=== PATIENT | female | born 1990 | race Caucasian/White ===

== ENCOUNTER 2018-06-03 04:48 | Inpatient (IN) | payer SELFPAY, OTHER ==
[2018-06-03] MEDS ORDERED: OXYTOCIN 30 UNITS/LR 500 ML IV ×2 (06:00)
[2018-06-03] MEDS ORDERED: IBUPROFEN 600 MG TAB PO (06:00)
[2018-06-03] MEDS ORDERED: MISOPROSTOL 200 MCG TAB PR (06:00)
[2018-06-03] MEDS ORDERED: METHYLERGONOVINE 0.2 MG INJ IM (06:00)
[2018-06-03] MEDS ORDERED: BUTORPHANOL 2 MG INJ IV (06:00)
[2018-06-03] MEDS ORDERED: CARBOPROST 250 MCG INJ IM (06:00)
[2018-06-03] MEDS ORDERED: LIDOCAINE 1% (MPF) 30 ML INJ INJ (06:00)
[2018-06-03] MEDS ORDERED: MAGNESIUM SULFATE 4 GM/100 ML 100 ML (06:12)
[2018-06-03] MEDS ORDERED: MAGNESIUM SULFATE 20 GM/500 ML 500 ML IV (06:12)
[2018-06-03] MEDS: LACTATED RINGER'S 1,000 ML IV (06:23)
[2018-06-03] MEDS: MAGNESIUM SULFATE 4 GM/100 ML 100 ML IV (06:24)
[2018-06-03] MEDS: AMPICILLIN 2 GM/NS (PMX) 100 ML IV (06:25)
[2018-06-03 06:57] LABS: ADD MAN DIFF? NO
[2018-06-03] MEDS: MAGNESIUM SULFATE 20 GM/500 ML 500 ML IV ×2 (06:58→17:59)
[2018-06-03 07:03] LABS: WHITE BLOOD COUNT 5.5 10^3/ul (4.8-10.8)
[2018-06-03 07:03] LABS: ABNORMAL IP MESSAGE 1; BASOPHILS % 0.5 % (0.0-2.0); EOSINOPHILS % 0.7 % (0.0-7.0); HEMATOCRIT 23.6 % (37.0-47.0); LYMPHOCYTES # 1.5 10^3/ul (0.8-2.9); LYMPHOCYTES % 27.3 % (15.0-51.0); MEAN CORPUSCULAR HEMOGLOBIN 19.1 pg (29.0-33.0); MEAN CORPUSCULAR HGB CONC 26.7 g/dl (32.0-37.0); MEAN CORPUSCULAR VOLUME 71.7 fl (82.0-101.0); MONOCYTE # 0.5 10^3/ul (0.3-0.9); NEUTROPHIL # 3.4 10^3/ul (1.6-7.5); NEUTROPHILS % 62.1 % (39.0-77.0); NUCLEATED RED BLOOD CELLS # 0.1 10^3/ul (0.0-0.0); NUCLEATED RED BLOOD CELLS% 1.6 /100WBC (0.0-0.0); PLATELET COUNT 149 10^3/UL (140-415); RED BLOOD COUNT 3.29 10^6/ul (4.20-5.40); RED CELL DISTRIBUTION WIDTH 21.8 % (11.5-14.5)
[2018-06-03 07:05] LABS: POSITIVE DIFF @See below
[2018-06-03 07:07] LABS: HEMOGLOBIN 6.3 g/dl (12.0-16.0)
[2018-06-03 07:19] LABS: ALANINE AMINOTRANSFERASE 16 IU/L (13-69); ALBUMIN 2.7 g/dl (3.3-4.9); ALKALINE PHOSPHATASE 194 IU/L (42-121); ANION GAP 8 (5-13); ASPARTATE AMINO TRANSFERASE 17 IU/L (15-46); BLOOD UREA NITROGEN 11 mg/dl (7-20); CALCIUM 8.2 mg/dl (8.4-10.2); CARBON DIOXIDE 23 mmol/L (21-31); CHLORIDE 107 mmol/L (97-110); CREATININE 0.62 mg/dl (0.44-1.00); Estimated GFR > 60 mL/min (>60); GLUCOSE 89 mg/dl (70-220); POTASSIUM 3.7 mmol/L (3.5-5.1); SODIUM 138 mmol/L (135-144); TOTAL PROTEIN 5.7 g/dl (6.1-8.1); URIC ACID 5.1 mg/dl (3.1-7.9)
[2018-06-03 07:20] LABS: INR 0.86; PROTIME 11.8 Sec (11.9-14.9); PT RATIO 0.9
[2018-06-03 07:21] LABS: PARTIAL THROMBOPLASTIN TIME 30.2 Sec (23.0-35.0)
[2018-06-03 07:49] LABS: HEPATITIS B SURFACE ANTIGEN NEGATIVE (NEGATIVE)
[2018-06-03 07:59] LABS: HIV 1&2 ANTIBODY NEGATIVE (NEGATIVE)
[2018-06-03] MEDS ORDERED: LABETALOL HCL 20MG INJ IV ×2 (08:30)
[2018-06-03 08:54] LABS: BARBITURATES Negative (NEGATIVE); BENZODIAZEPINES Negative (NEGATIVE); CANNABINOIDS Negative (NEGATIVE); COCAINE Negative (NEGATIVE); OPIATES Negative (NEGATIVE)
[2018-06-03 08:55] LABS: AMPHETAMINE/METHAMPHETAMINE Positive (NEGATIVE)
[2018-06-03 09:15] LABS: ADD UMIC YES; UR AMORPHOUS CRYSTAL FEW /HPF (NONE SEEN); UR ASCORBIC ACID NEGATIVE (NEGATIVE); UR BACTERIA FEW /HPF (NONE SEEN); UR BILIRUBIN (Dip) NEGATIVE (NEGATIVE); UR BLOOD (Dip) NEGATIVE (NEGATIVE); UR CLARITY SLIGHTLY CLOUDY (CLEAR); UR COLOR YELLOW (YELLOW); UR GLUCOSE (Dip) NEGATIVE (NEGATIVE); UR KETONES (Dip) NEGATIVE (NEGATIVE); UR LEUKOCYTE ESTERASE (Dip) NEGATIVE Leu/ul (NEGATIVE); UR NITRITE (Dip) POSITIVE (NEGATIVE); UR RBC 2 /HPF (0-5); UR SPECIFIC GRAVITY (Dip) 1.023 (1.003-1.030); UR TOTAL PROTEIN (Dip) 2+ mg/dl (NEGATIVE); UR UROBILINOGEN (Dip) NEGATIVE (NEGATIVE); UR WBC 6 /HPF (0-5)
[2018-06-03] MEDS: AMPICILLIN 1 GM/NS (PMX) 50 ML IV ×4 (10:00→22:07)
[2018-06-03] MEDS: LABETALOL HCL 20MG INJ IV (11:06)
[2018-06-03] MEDS: BETAMET NA PHOS/AC(6 MG/ML) 2 ML INJ SYG IM (11:14)
[2018-06-03 12:47] LABS: MAGNESIUM 4.9 mg/dl (1.7-2.5)
[2018-06-03 14:27] LABS: ADD MAN DIFF? NO
[2018-06-03 14:32] LABS: WHITE BLOOD COUNT 7.7 10^3/ul (4.8-10.8)
[2018-06-03 14:32] LABS: ABNORMAL IP MESSAGE 1; BASOPHILS % 0.3 % (0.0-2.0); EOSINOPHILS % 0.1 % (0.0-7.0); HEMATOCRIT 31.8 % (37.0-47.0); HEMOGLOBIN 9.1 g/dl (12.0-16.0); LYMPHOCYTES # 0.7 10^3/ul (0.8-2.9); LYMPHOCYTES % 9.1 % (15.0-51.0); MEAN CORPUSCULAR HEMOGLOBIN 20.9 pg (29.0-33.0); MEAN CORPUSCULAR HGB CONC 28.6 g/dl (32.0-37.0); MEAN CORPUSCULAR VOLUME 72.9 fl (82.0-101.0); MONOCYTE # 0.1 10^3/ul (0.3-0.9); MONOCYTES % 1.6 % (0.0-11.0); NEUTROPHIL # 6.6 10^3/ul (1.6-7.5); NEUTROPHILS % 85.9 % (39.0-77.0); NUCLEATED RED BLOOD CELLS # 0.1 10^3/ul (0.0-0.0); NUCLEATED RED BLOOD CELLS% 1.3 /100WBC (0.0-0.0); PLATELET COUNT 149 10^3/UL (140-415); RED BLOOD COUNT 4.36 10^6/ul (4.20-5.40); RED CELL DISTRIBUTION WIDTH 21.4 % (11.5-14.5)
[2018-06-03 14:35] LABS: POSITIVE DIFF @See below
[2018-06-03 14:49] LABS: LIPASE 97 U/L (23-300)
[2018-06-03 14:49] LABS: AMYLASE 99 U/L (11-123); HEMOGLOBIN A1C 5.3 % (0-5.9)
[2018-06-03 15:11] LABS: TROPONIN-I < 0.012 ng/ml (0.000-0.120)
[2018-06-03 18:54] LABS: MAGNESIUM 4.6 mg/dl (1.7-2.5)
[2018-06-03 21:08] LABS: RAPID PLASMA REAGIN NONREACTIVE (NR)
[2018-06-04] MEDS: LACTATED RINGER'S 1,000 ML IV ×4 (00:05→14:00)
[2018-06-04 01:28] LABS: MAGNESIUM 4.5 mg/dl (1.7-2.5)
[2018-06-04] MEDS: AMPICILLIN 1 GM/NS (PMX) 50 ML IV ×6 (02:07→22:09)
[2018-06-04 07:13] LABS: MAGNESIUM 4.5 mg/dl (1.7-2.5)
[2018-06-04] MEDS: BETAMET NA PHOS/AC(6 MG/ML) 2 ML INJ SYG IM (11:39)
[2018-06-04 12:44] LABS: MAGNESIUM 4.5 mg/dl (1.7-2.5)
[2018-06-04] MEDS: MAGNESIUM SULFATE 20 GM/500 ML 500 ML IV (13:32)
[2018-06-04] MEDS: SUCRALFATE (100 MG/ML) 10ML CUP PO ×3 (14:14→21:00)
[2018-06-04] MEDS: ACETAMINOPHEN 325 MG TAB PO (16:26)
[2018-06-04 17:22] LABS: ADD UMIC YES; UR ASCORBIC ACID NEGATIVE (NEGATIVE); UR BILIRUBIN (Dip) NEGATIVE (NEGATIVE); UR BLOOD (Dip) 1+ mg/dL (NEGATIVE); UR CLARITY CLEAR (CLEAR); UR COLOR STRAW (YELLOW); UR GLUCOSE (Dip) NEGATIVE (NEGATIVE); UR KETONES (Dip) NEGATIVE (NEGATIVE); UR LEUKOCYTE ESTERASE (Dip) NEGATIVE Leu/ul (NEGATIVE); UR NITRITE (Dip) NEGATIVE (NEGATIVE); UR RBC 7 /HPF (0-5); UR SPECIFIC GRAVITY (Dip) 1.008 (1.003-1.030); UR TOTAL PROTEIN (Dip) 2+ mg/dl (NEGATIVE); UR UROBILINOGEN (Dip) NEGATIVE (NEGATIVE); UR WBC 1 /HPF (0-5)
[2018-06-04 18:09] LABS: ADD MAN DIFF? NO
[2018-06-04 18:10] LABS: ABNORMAL IP MESSAGE 1; BASOPHILS % 0.1 % (0.0-2.0); HEMATOCRIT 29.3 % (37.0-47.0); HEMOGLOBIN 8.4 g/dl (12.0-16.0); LYMPHOCYTES # 0.7 10^3/ul (0.8-2.9); LYMPHOCYTES % 8.3 % (15.0-51.0); MEAN CORPUSCULAR HEMOGLOBIN 20.7 pg (29.0-33.0); MEAN CORPUSCULAR HGB CONC 28.7 g/dl (32.0-37.0); MEAN CORPUSCULAR VOLUME 72.2 fl (82.0-101.0); MONOCYTE # 0.3 10^3/ul (0.3-0.9); MONOCYTES % 3.8 % (0.0-11.0); NEUTROPHIL # 6.8 10^3/ul (1.6-7.5); NEUTROPHILS % 86.7 % (39.0-77.0); NUCLEATED RED BLOOD CELLS # 0.2 10^3/ul (0.0-0.0); NUCLEATED RED BLOOD CELLS% 1.9 /100WBC (0.0-0.0); PLATELET COUNT 136 10^3/UL (140-415); RED BLOOD COUNT 4.06 10^6/ul (4.20-5.40); RED CELL DISTRIBUTION WIDTH 21.5 % (11.5-14.5)
[2018-06-04 18:10] LABS: WHITE BLOOD COUNT 7.8 10^3/ul (4.8-10.8)
[2018-06-04 18:16] LABS: POSITIVE DIFF @See below
[2018-06-04 18:29] LABS: MAGNESIUM 4.5 mg/dl (1.7-2.5)
[2018-06-04 18:29] LABS: ALANINE AMINOTRANSFERASE 9 IU/L (13-69); ALBUMIN 2.8 g/dl (3.3-4.9); ALBUMIN/GLOBULIN RATIO 0.87; ALKALINE PHOSPHATASE 203 IU/L (42-121); ANION GAP 8 (5-13); ASPARTATE AMINO TRANSFERASE 19 IU/L (15-46); BLOOD UREA NITROGEN 9 mg/dl (7-20); CALCIUM 7.4 mg/dl (8.4-10.2); CARBON DIOXIDE 23 mmol/L (21-31); CHLORIDE 104 mmol/L (97-110); Estimated GFR > 60 mL/min (>60); GLUCOSE 131 mg/dl (70-220); POTASSIUM 4.2 mmol/L (3.5-5.1); SODIUM 135 mmol/L (135-144); URIC ACID 5.1 mg/dl (3.1-7.9)
[2018-06-04 18:30] LABS: INR 0.93; PARTIAL THROMBOPLASTIN TIME 28.3 Sec (23.0-35.0); PROTIME 12.5 Sec (11.9-14.9)
[2018-06-04] MEDS: ONDANSETRON 4 MG INJ IV (21:29)
[2018-06-04] MEDS ORDERED: ACETAMINOPHEN 650 MG SUPP PR (21:30)
[2018-06-04] MEDS: NACL 0.9% 3 ML SYG IV (21:31)
[2018-06-04 21:36] LABS: IMMEDIATE SPIN CROSSMATCH 1 3
[2018-06-05] MEDS: NACL 0.9% 3 ML SYG IV ×3 (00:02→23:54)
[2018-06-05 01:43] LABS: MAGNESIUM 4.5 mg/dl (1.7-2.5)
[2018-06-05] MEDS: AMPICILLIN 1 GM/NS (PMX) 50 ML IV ×6 (02:02→22:26)
[2018-06-05] MEDS: LACTATED RINGER'S 1,000 ML IV ×2 (04:10→18:21)
[2018-06-05 07:18] LABS: MAGNESIUM 3.9 mg/dl (1.7-2.5)
[2018-06-05] MEDS: SUCRALFATE (100 MG/ML) 10ML CUP PO ×4 (09:38→20:44)
[2018-06-05] MEDS: DOCUSATE SODIUM 100 MG CAP PO (09:38)
[2018-06-05] MEDS: PRENATAL VITAMIN PO (09:39)
[2018-06-05] MEDS: FERROUS SULFATE (EC) 325 MG TAB PO ×2 (09:39→22:53)
[2018-06-05] MEDS: MAGNESIUM SULFATE 20 GM/500 ML 500 ML IV (09:42)
[2018-06-05] MEDS: LABETALOL 200 MG TAB PO ×3 (10:24→22:27)
[2018-06-05 12:46] LABS: MAGNESIUM 3.7 mg/dl (1.7-2.5)
[2018-06-05 13:08] LABS: ADD MAN DIFF? NO
[2018-06-05 13:12] LABS: WHITE BLOOD COUNT 10.3 10^3/ul (4.8-10.8)
[2018-06-05 13:12] LABS: ABNORMAL IP MESSAGE 1; BASOPHILS % 0.1 % (0.0-2.0); EOSINOPHILS % 0.1 % (0.0-7.0); HEMATOCRIT 31.3 % (37.0-47.0); HEMOGLOBIN 9.1 g/dl (12.0-16.0); LYMPHOCYTES # 1.3 10^3/ul (0.8-2.9); LYMPHOCYTES % 12.5 % (15.0-51.0); MEAN CORPUSCULAR HEMOGLOBIN 21.5 pg (29.0-33.0); MEAN CORPUSCULAR HGB CONC 29.1 g/dl (32.0-37.0); MONOCYTE # 0.9 10^3/ul (0.3-0.9); MONOCYTES % 8.4 % (0.0-11.0); NEUTROPHILS % 77.9 % (39.0-77.0); NUCLEATED RED BLOOD CELLS # 0.3 10^3/ul (0.0-0.0); NUCLEATED RED BLOOD CELLS% 2.5 /100WBC (0.0-0.0); PLATELET COUNT 138 10^3/UL (140-415); RED BLOOD COUNT 4.23 10^6/ul (4.20-5.40); RED CELL DISTRIBUTION WIDTH 21.4 % (11.5-14.5)
[2018-06-05 13:20] LABS: POSITIVE DIFF @See below
[2018-06-05 13:30] LABS: URIC ACID 4.7 mg/dl (3.1-7.9)
[2018-06-05 13:32] LABS: ALANINE AMINOTRANSFERASE 16 IU/L (13-69); ALBUMIN 2.6 g/dl (3.3-4.9); ALBUMIN/GLOBULIN RATIO 0.89; ALKALINE PHOSPHATASE 188 IU/L (42-121); ANION GAP 8 (5-13); ASPARTATE AMINO TRANSFERASE 18 IU/L (15-46); BILIRUBIN,INDIRECT 0.1 mg/dl (0-1.1); BILIRUBIN,TOTAL 0.1 mg/dl (0.2-1.3); BLOOD UREA NITROGEN 12 mg/dl (7-20); CALCIUM 7.4 mg/dl (8.4-10.2); CARBON DIOXIDE 24 mmol/L (21-31); CHLORIDE 105 mmol/L (97-110); CREATININE 0.53 mg/dl (0.44-1.00); Estimated GFR > 60 mL/min (>60); GLUCOSE 98 mg/dl (70-220); POTASSIUM 4.3 mmol/L (3.5-5.1); SODIUM 137 mmol/L (135-144); TOTAL PROTEIN 5.5 g/dl (6.1-8.1)
[2018-06-05] MEDS: ACETAMINOPHEN 325 MG TAB PO (20:46)
[2018-06-06] MEDS: AMPICILLIN 1 GM/NS (PMX) 50 ML IV ×6 (02:18→21:29)
[2018-06-06] MEDS: LABETALOL 200 MG TAB PO ×2 (06:00→21:40)
[2018-06-06 06:15] LABS: ADD MAN DIFF? NO
[2018-06-06 06:23] LABS: ABNORMAL IP MESSAGE 1; BASOPHILS % 0.3 % (0.0-2.0); HEMOGLOBIN 8.7 g/dl (12.0-16.0); LYMPHOCYTES # 1.5 10^3/ul (0.8-2.9); MEAN CORPUSCULAR HEMOGLOBIN 21.8 pg (29.0-33.0); MEAN CORPUSCULAR VOLUME 75.2 fl (82.0-101.0); MONOCYTE # 0.8 10^3/ul (0.3-0.9); MONOCYTES % 7.9 % (0.0-11.0); NEUTROPHIL # 7.8 10^3/ul (1.6-7.5); NEUTROPHILS % 75.8 % (39.0-77.0); NUCLEATED RED BLOOD CELLS # 0.4 10^3/ul (0.0-0.0); NUCLEATED RED BLOOD CELLS% 3.9 /100WBC (0.0-0.0); PLATELET COUNT 130 10^3/UL (140-415); RED BLOOD COUNT 3.99 10^6/ul (4.20-5.40); RED CELL DISTRIBUTION WIDTH 21.6 % (11.5-14.5)
[2018-06-06 06:23] LABS: WHITE BLOOD COUNT 10.3 10^3/ul (4.8-10.8)
[2018-06-06 06:26] LABS: POSITIVE DIFF @See below
[2018-06-06] MEDS ORDERED: OXYTOCIN 30 UNITS/LR 500 ML BAG IV (07:00)
[2018-06-06] MEDS ORDERED: METHYLERGONOVINE 0.2 MG INJ IM ×2 (08:00→17:30)
[2018-06-06] MEDS ORDERED: OXYTOCIN 30 UNITS/LR 500 ML IV ×3 (08:00→17:30)
[2018-06-06] MEDS: LEVALBUTEROL (NEB) 0.31 MG/3 ML AMP HHN (08:09)
[2018-06-06] MEDS: MAGNESIUM SULFATE 20 GM/500 ML 500 ML IV ×3 (08:21→21:25)
[2018-06-06] MEDS: LACTATED RINGER'S 1,000 ML IV ×3 (08:22→23:29)
[2018-06-06] MEDS: ONDANSETRON 4 MG INJ IV (08:59)
[2018-06-06] MEDS: CITRIC ACID/NA CITRATE 30 ML CUP PO (08:59)
[2018-06-06] MEDS: DOCUSATE SODIUM 100 MG CAP PO (09:00)
[2018-06-06] MEDS: SUCRALFATE (100 MG/ML) 10ML CUP PO ×4 (09:00→21:00)
[2018-06-06] MEDS: FERROUS SULFATE (EC) 325 MG TAB PO ×2 (09:00→21:40)
[2018-06-06] MEDS: PRENATAL VITAMIN PO (09:00)
[2018-06-06] MEDS ORDERED: morphine SULFATE/PF (10 MG/10 ML) INJ (09:21)
[2018-06-06] MEDS ORDERED: OXYTOCIN 10 UNIT INJ (09:21)
[2018-06-06] MEDS ORDERED: PHENYLephrine (100 MCG/ML) 10ML SYG (09:21)
[2018-06-06] MEDS ORDERED: FENTAnyl 50 MCG/ML VIAL (09:45)
[2018-06-06] MEDS ORDERED: METOCLOPRAMIDE 10 MG INJ (09:47)
[2018-06-06] MEDS ORDERED: DEXAMETHASONE 4 MG/ML 1 ML INJ (09:47)
[2018-06-06] MEDS ORDERED: NALOXONE (0.4 MG/ML) INJ IV (10:00)
[2018-06-06] MEDS ORDERED: morphine 2 MG INJ IV ×2 (10:00)
[2018-06-06] MEDS ORDERED: OXYCODONE/ACETAMINOPHEN (5/325) TAB PO (10:00)
[2018-06-06] MEDS ORDERED: ONDANSETRON 4 MG INJ IV ×2 (10:00)
[2018-06-06] MEDS ORDERED: NALBUPHINE HCL (10 MG/1 ML) INJ IV (10:00)
[2018-06-06] MEDS ORDERED: LABETALOL HCL 20MG INJ IV (10:00)
[2018-06-06] MEDS ORDERED: FENTAnyl 50 MCG/ML VIAL IV ×2 (10:00)
[2018-06-06] MEDS ORDERED: DIPHENHYDRAMINE 50 MG INJ IV ×2 (10:00)
[2018-06-06] MEDS ORDERED: METOCLOPRAMIDE 10 MG INJ IV (10:00)
[2018-06-06] MEDS ORDERED: EPHEDrine SULFATE 50 MG/5 ML SYG IV (10:00)
[2018-06-06] MEDS ORDERED: ACETAMINOPHEN 500 MG TAB PO (10:00)
[2018-06-06] MEDS ORDERED: KETOROLAC 30 MG INJ IV (10:00)
[2018-06-06] MEDS ORDERED: MEPERIDINE 25 MG INJ IV (10:00)
[2018-06-06] MEDS ORDERED: HYDROCODONE/APAP (5/325) TAB PO (10:00)
[2018-06-06] MEDS ORDERED: HYDROmorphONE 1 MG/5 ML IV SYRINGE IV ×2 (10:00)
[2018-06-06] MEDS ORDERED: CA GLUCONATE (GM) 10% 10ML INJ IV (10:30)
[2018-06-06] MEDS ORDERED: MAGNESIUM SULFATE 2 GM/50 ML 50 ML IVPB (10:30)
[2018-06-06 11:57] LABS: HEPATITIS C VIRAL ANTIBODY NEGATIVE (NEGATIVE)
[2018-06-06] MEDS ORDERED: MISOPROSTOL 200 MCG TAB (12:00)
[2018-06-06] MEDS: HYDROmorphONE 0.5 MG/0.5 ML SYG IV ×3 (12:05→17:22)
[2018-06-06] MEDS: MISOPROSTOL 200 MCG TAB PR (12:11)
[2018-06-06] MEDS: CARBOPROST 250 MCG INJ IM (12:12)
[2018-06-06] MEDS: OXYTOCIN 30 UNITS/LR 500 ML IV ×2 (12:21→17:09)
[2018-06-06 12:27] LABS: HEMATOCRIT 25.6 % (37.0-47.0); HEMOGLOBIN 7.4 g/dl (12.0-16.0)
[2018-06-06 12:50] LABS: MAGNESIUM 4.1 mg/dl (1.7-2.5)
[2018-06-06] MEDS: CEFAZOLIN 2 GM/50 ML (PMX) 50 ML IVPB (14:17)
[2018-06-06 16:13] LABS: IMMEDIATE SPIN CROSSMATCH 1 4
[2018-06-06] MEDS ORDERED: NACL 0.9% 3 ML SYG IV (17:30)
[2018-06-06] MEDS ORDERED: LANOLIN HPA 1 PKT TOP (17:30)
[2018-06-06] MEDS ORDERED: CARBOPROST 250 MCG INJ IM (17:30)
[2018-06-06] MEDS ORDERED: MISOPROSTOL 200 MCG TAB PR (17:30)
[2018-06-06 19:37] LABS: HEMATOCRIT 27.1 % (37.0-47.0); HEMOGLOBIN 8.1 g/dl (12.0-16.0)
[2018-06-06 19:56] LABS: MAGNESIUM 2.9 mg/dl (1.7-2.5)
[2018-06-06] MEDS: SENNA/DOCUSATE NA (8.6MG/50MG) TAB PO (21:40)
[2018-06-07 00:29] LABS: HEMOGLOBIN 7.1 g/dl (12.0-16.0)
[2018-06-07 00:46] LABS: MAGNESIUM 4.3 mg/dl (1.7-2.5)
[2018-06-07] MEDS: AMPICILLIN 1 GM/NS (PMX) 50 ML IV ×3 (02:00→09:31)
[2018-06-07] MEDS: MAGNESIUM SULFATE 20 GM/500 ML 500 ML IV (04:05)
[2018-06-07 06:19] LABS: ADD MAN DIFF? NO
[2018-06-07 06:22] LABS: ABNORMAL IP MESSAGE 1; BASOPHILS % 0.1 % (0.0-2.0); EOSINOPHILS % 0.1 % (0.0-7.0); HEMATOCRIT 23.1 % (37.0-47.0); LYMPHOCYTES # 1.6 10^3/ul (0.8-2.9); LYMPHOCYTES % 10.7 % (15.0-51.0); MEAN CORPUSCULAR HEMOGLOBIN 23.4 pg (29.0-33.0); MEAN CORPUSCULAR HGB CONC 30.3 g/dl (32.0-37.0); MEAN CORPUSCULAR VOLUME 77.3 fl (82.0-101.0); MONOCYTES % 6.3 % (0.0-11.0); NEUTROPHIL # 12.3 10^3/ul (1.6-7.5); NEUTROPHILS % 82.3 % (39.0-77.0); NUCLEATED RED BLOOD CELLS # 0.1 10^3/ul (0.0-0.0); NUCLEATED RED BLOOD CELLS% 0.7 /100WBC (0.0-0.0); PLATELET COUNT 99 10^3/UL (140-415); RED BLOOD COUNT 2.99 10^6/ul (4.20-5.40); RED CELL DISTRIBUTION WIDTH 21.8 % (11.5-14.5)
[2018-06-07 06:28] LABS: POSITIVE DIFF @See below
[2018-06-07 06:37] LABS: MAGNESIUM 4.8 mg/dl (1.7-2.5)
[2018-06-07 07:36] LABS: RUBELLA ANTIBODY - IGG <0.90 index
[2018-06-07] MEDS: SUCRALFATE (100 MG/ML) 10ML CUP PO ×4 (09:20→21:15)
[2018-06-07] MEDS: SENNA/DOCUSATE NA (8.6MG/50MG) TAB PO ×2 (09:21→21:17)
[2018-06-07] MEDS: DOCUSATE SODIUM 100 MG CAP PO (09:21)
[2018-06-07] MEDS: FERROUS SULFATE (EC) 325 MG TAB PO ×2 (09:21→21:17)
[2018-06-07] MEDS: LABETALOL 200 MG TAB PO ×2 (09:22→21:16)
[2018-06-07] MEDS: PRENATAL VITAMIN PO (09:23)
[2018-06-07] MEDS: INFLUENZA VIRUS VACCINE 0.5 ML (DISPENSING) IM* (10:00)
[2018-06-07] MEDS: OXYCODONE/ACETAMINOPHEN (5/325) TAB PO ×3 (11:58→20:42)
[2018-06-07] MEDS: MEDROXYPROGESTERONE 150 MG INJ SYG IM (14:02)
[2018-06-07] MEDS: ACETAMINOPHEN 325 MG TAB PO (15:08)
[2018-06-07] MEDS: IBUPROFEN 600 MG TAB PO ×2 (17:46→23:55)
[2018-06-08] MEDS ORDERED: LABETALOL 200 MG TAB PO (05:00)
[2018-06-08] MEDS: IBUPROFEN 600 MG TAB PO ×4 (05:31→23:36)
[2018-06-08 07:43] LABS: ADD MAN DIFF? NO
[2018-06-08 08:03] LABS: WHITE BLOOD COUNT 11.8 10^3/ul (4.8-10.8)
[2018-06-08 08:03] LABS: ABNORMAL IP MESSAGE 1; BASOPHILS % 0.1 % (0.0-2.0); EOSINOPHILS % 0.3 % (0.0-7.0); HEMATOCRIT 21.2 % (37.0-47.0); LYMPHOCYTES # 1.5 10^3/ul (0.8-2.9); MEAN CORPUSCULAR HEMOGLOBIN 23.5 pg (29.0-33.0); MEAN CORPUSCULAR HGB CONC 29.7 g/dl (32.0-37.0); MEAN CORPUSCULAR VOLUME 79.1 fl (82.0-101.0); MONOCYTE # 0.7 10^3/ul (0.3-0.9); NEUTROPHIL # 9.4 10^3/ul (1.6-7.5); NEUTROPHILS % 80.1 % (39.0-77.0); NUCLEATED RED BLOOD CELLS # 0.1 10^3/ul (0.0-0.0); NUCLEATED RED BLOOD CELLS% 0.5 /100WBC (0.0-0.0); PLATELET COUNT 102 10^3/UL (140-415); RED BLOOD COUNT 2.68 10^6/ul (4.20-5.40); RED CELL DISTRIBUTION WIDTH 22.6 % (11.5-14.5)
[2018-06-08 08:05] LABS: POSITIVE DIFF @See below
[2018-06-08 08:09] LABS: HEMOGLOBIN 6.3 g/dl (12.0-16.0)
[2018-06-08] MEDS: OXYCODONE/ACETAMINOPHEN (5/325) TAB PO ×2 (08:18→16:51)
[2018-06-08] MEDS: LABETALOL 200 MG TAB PO ×2 (08:18→20:24)
[2018-06-08] MEDS: DOCUSATE SODIUM 100 MG CAP PO (08:18)
[2018-06-08] MEDS: SUCRALFATE (100 MG/ML) 10ML CUP PO ×4 (08:19→21:00)
[2018-06-08] MEDS: SENNA/DOCUSATE NA (8.6MG/50MG) TAB PO (08:19)
[2018-06-08] MEDS: PRENATAL VITAMIN PO (08:19)
[2018-06-08] MEDS: FERROUS SULFATE (EC) 325 MG TAB PO ×2 (08:19→20:24)
[2018-06-08 09:53] LABS: ANISOCYTOSIS 2+ (0-0); HYPOCHROMASIA 2+ (0-0); LYMPHOCYTES % (M) 9 % (15-51); MICROCYTOSIS 2+ (0-0); MONOCYTE #M 0.4 10^3/ul (0.3-0.9); MONOCYTES % (M) 4 % (0-11); PLATELET ESTIMATE DECREASED; POLYCHROMASIA 1+ (0-0); SEGMENTED NEUTROPHILS (M) % 87 % (39-77); SMUDGE%M 1 % (0-0)
[2018-06-08 15:06] LABS: IMMEDIATE SPIN CROSSMATCH 1
[2018-06-08] MEDS: NIFEdipine (XL) 30 MG TAB PO (16:30)
[2018-06-08] MEDS: LEVALBUTEROL (NEB) 0.31 MG/3 ML AMP HHN (17:53)
[2018-06-08] MEDS ORDERED: FUROSEMIDE 20 MG INJ IV (18:00)
[2018-06-09] MEDS: FUROSEMIDE 40 MG TAB PO (00:14)
[2018-06-09] MEDS: SENNA/DOCUSATE NA (8.6MG/50MG) TAB PO ×3 (00:52→20:57)
[2018-06-09] MEDS: OXYCODONE/ACETAMINOPHEN (5/325) TAB PO (04:03)
[2018-06-09] MEDS: IBUPROFEN 600 MG TAB PO ×3 (05:26→18:13)
[2018-06-09 07:07] LABS: ADD MAN DIFF? NO
[2018-06-09 07:08] LABS: ABNORMAL IP MESSAGE 1; BASOPHILS % 0.2 % (0.0-2.0); EOSINOPHILS # 0.1 10^3/ul (0.0-0.5); EOSINOPHILS % 0.6 % (0.0-7.0); HEMOGLOBIN 8.7 g/dl (12.0-16.0); LYMPHOCYTES # 1.7 10^3/ul (0.8-2.9); LYMPHOCYTES % 15.1 % (15.0-51.0); MEAN CORPUSCULAR HEMOGLOBIN 25.1 pg (29.0-33.0); MEAN CORPUSCULAR VOLUME 83.8 fl (82.0-101.0); MONOCYTE # 0.6 10^3/ul (0.3-0.9); NEUTROPHIL # 8.7 10^3/ul (1.6-7.5); NEUTROPHILS % 78.6 % (39.0-77.0); NUCLEATED RED BLOOD CELLS # 0.1 10^3/ul (0.0-0.0); NUCLEATED RED BLOOD CELLS% 0.5 /100WBC (0.0-0.0); PLATELET COUNT 111 10^3/UL (140-415); RED BLOOD COUNT 3.46 10^6/ul (4.20-5.40); RED CELL DISTRIBUTION WIDTH 21.6 % (11.5-14.5)
[2018-06-09 07:08] LABS: WHITE BLOOD COUNT 11.1 10^3/ul (4.8-10.8)
[2018-06-09 07:15] LABS: POSITIVE DIFF @See below
[2018-06-09] MEDS: LABETALOL 200 MG TAB PO ×2 (09:06→20:58)
[2018-06-09] MEDS: DOCUSATE SODIUM 100 MG CAP PO (09:07)
[2018-06-09] MEDS: FERROUS SULFATE (EC) 325 MG TAB PO ×2 (09:07→20:58)
[2018-06-09] MEDS: PRENATAL VITAMIN PO (09:07)
[2018-06-09] MEDS: SUCRALFATE (100 MG/ML) 10ML CUP PO ×4 (09:07→20:57)
[2018-06-09] MEDS: NIFEdipine (XL) 30 MG TAB PO (09:07)
[2018-06-09] MEDS: DIPHTH/TET/ACEL PERTUSS (ADULT) 0.5 ML VIAL IM* (11:09)
[2018-06-09 11:11] LABS: RUBELLA ANTIBODY - IGM <20.00 AU/mL
[2018-06-09 19:22] LABS: AMPHETAMINE/METHAMPHETAMINE Negative (NEGATIVE); BARBITURATES Negative (NEGATIVE); BENZODIAZEPINES Negative (NEGATIVE); CANNABINOIDS Negative (NEGATIVE); COCAINE Negative (NEGATIVE); OPIATES Negative (NEGATIVE)
[2018-06-10] MEDS: IBUPROFEN 600 MG TAB PO ×3 (00:07→12:05)
[2018-06-10] MEDS: DOCUSATE SODIUM 100 MG CAP PO (09:44)
[2018-06-10] MEDS: ACETAMINOPHEN 325 MG TAB PO (09:44)
[2018-06-10] MEDS: SENNA/DOCUSATE NA (8.6MG/50MG) TAB PO (09:44)
[2018-06-10] MEDS: NIFEdipine (XL) 30 MG TAB PO (09:44)
[2018-06-10] MEDS: FERROUS SULFATE (EC) 325 MG TAB PO (09:45)
[2018-06-10] MEDS: LABETALOL 200 MG TAB PO (09:45)
[2018-06-10] MEDS: SUCRALFATE (100 MG/ML) 10ML CUP PO ×2 (09:46→13:00)
[2018-06-10] MEDS: PRENATAL VITAMIN PO (12:06)
[2018-06-10 14:19] LABS: ADD MAN DIFF? NO
[2018-06-10 14:24] LABS: WHITE BLOOD COUNT 9.5 10^3/ul (4.8-10.8)
[2018-06-10 14:24] LABS: ABNORMAL IP MESSAGE 1; BASOPHILS % 0.1 % (0.0-2.0); EOSINOPHILS # 0.1 10^3/ul (0.0-0.5); EOSINOPHILS % 0.8 % (0.0-7.0); HEMATOCRIT 30.7 % (37.0-47.0); HEMOGLOBIN 9.4 g/dl (12.0-16.0); LYMPHOCYTES # 1.2 10^3/ul (0.8-2.9); LYMPHOCYTES % 12.7 % (15.0-51.0); MEAN CORPUSCULAR HEMOGLOBIN 25.1 pg (29.0-33.0); MEAN CORPUSCULAR HGB CONC 30.6 g/dl (32.0-37.0); MEAN CORPUSCULAR VOLUME 81.9 fl (82.0-101.0); MEAN PLATELET VOLUME 10.1 fl (7.4-10.4); MONOCYTE # 0.6 10^3/ul (0.3-0.9); MONOCYTES % 6.6 % (0.0-11.0); NEUTROPHIL # 7.5 10^3/ul (1.6-7.5); NEUTROPHILS % 79.3 % (39.0-77.0); NUCLEATED RED BLOOD CELLS% 0.2 /100WBC (0.0-0.0); PLATELET COUNT 126 10^3/UL (140-415); POSITIVE DIFF @See below; RED BLOOD COUNT 3.75 10^6/ul (4.20-5.40); RED CELL DISTRIBUTION WIDTH 22.5 % (11.5-14.5)
== END 2018-06-10 17:25 | disposition home or self-care (01) | DRG 787 ==
LOC: OBT 04:48 → L-D 06-06 09:17 → ICU 06-06 10:14 → OBT 06:05 → L-D 06:05 → PP1 06-06 20:00 → L-D 08:00
PROC: 30233N1 Transfusion of Nonautologous Red Blood Cells into Peripheral Vein, Percutaneous Approach (ICD-10-PCS; 2018-06-03)
PROC: 10D00Z1 Extraction of Products of Conception, Low, Open Approach (ICD-10-PCS; principal; 2018-06-06)
DX: O14.14 Severe pre-eclampsia complicating childbirth (principal); K92.0 Hematemesis; O72.1 Other immediate postpartum hemorrhage; O99.02 Anemia complicating childbirth; D64.9 Anemia, unspecified; O99.62 Diseases of the digestive system complicating childbirth; O99.324 Drug use complicating childbirth; F15.90 Other stimulant use, unspecified, uncomplicated; O12.05 Gestational edema, complicating the puerperium; O99.89 Other specified diseases and conditions complicating pregnancy, childbirth and the puerperium; R07.9 Chest pain, unspecified; Z37.0 Single live birth; Z3A.33 33 weeks gestation of pregnancy
CPT/HCPCS: 36430; 76815; 76818; 78580; 80053; 80307; 81001; 82150; 83036; 83690; 83735; 84484; 84560; 85014; 85018; 85025; 85384; 85610; 85730; 86592; 86703; 86762; 86803; 86850; 86900; 86901; 86920; 87340; 88307; 90715; 93971; 94640; 94664; 99464

== ENCOUNTER 2018-06-25 18:36 | Inpatient (IN) | payer MEDICAID, OTHER ==
[2018-06-25] MEDS: LABETALOL HCL 20MG INJ IV (19:30)
[2018-06-25 19:55] LABS: ADD MAN DIFF? NO
[2018-06-25 19:58] LABS: WHITE BLOOD COUNT 5.5 10^3/ul (4.8-10.8)
[2018-06-25 19:58] LABS: BASOPHILS % 0.7 % (0.0-2.0); EOSINOPHILS # 0.1 10^3/ul (0.0-0.5); HEMATOCRIT 37.5 % (37.0-47.0); HEMOGLOBIN 11.3 g/dl (12.0-16.0); LYMPHOCYTES % 36.2 % (15.0-51.0); MEAN CORPUSCULAR HEMOGLOBIN 25.9 pg (29.0-33.0); MEAN CORPUSCULAR HGB CONC 30.1 g/dl (32.0-37.0); MEAN CORPUSCULAR VOLUME 85.8 fl (82.0-101.0); MONOCYTE # 0.5 10^3/ul (0.3-0.9); MONOCYTES % 8.3 % (0.0-11.0); NEUTROPHIL # 2.9 10^3/ul (1.6-7.5); NEUTROPHILS % 52.6 % (39.0-77.0); PLATELET COUNT 339 10^3/UL (140-415); RED BLOOD COUNT 4.37 10^6/ul (4.20-5.40); RED CELL DISTRIBUTION WIDTH 21.9 % (11.5-14.5)
[2018-06-25] MEDS ORDERED: ONDANSETRON 4 MG INJ IV (20:00)
[2018-06-25] MEDS: ONDANSETRON 4 MG INJ IV (20:11)
[2018-06-25] MEDS: morphine 4 MG/ML VIAL IV (20:11)
[2018-06-25 20:13] LABS: ADD UMIC YES; UR ASCORBIC ACID NEGATIVE (NEGATIVE); UR BACTERIA FEW /HPF (NONE SEEN); UR BILIRUBIN (Dip) NEGATIVE (NEGATIVE); UR BLOOD (Dip) NEGATIVE (NEGATIVE); UR CLARITY CLEAR (CLEAR); UR COLOR YELLOW (YELLOW); UR GLUCOSE (Dip) NEGATIVE (NEGATIVE); UR KETONES (Dip) NEGATIVE (NEGATIVE); UR LEUKOCYTE ESTERASE (Dip) NEGATIVE Leu/ul (NEGATIVE); UR MUCUS FEW /HPF (NONE SEEN); UR NITRITE (Dip) NEGATIVE (NEGATIVE); UR RBC 3 /HPF (0-5); UR SPECIFIC GRAVITY (Dip) 1.017 (1.003-1.030); UR TOTAL PROTEIN (Dip) 2+ mg/dl (NEGATIVE); UR UROBILINOGEN (Dip) NEGATIVE (NEGATIVE); UR WBC 3 /HPF (0-5)
[2018-06-25 20:15] LABS: ALANINE AMINOTRANSFERASE 19 IU/L (13-69); ALBUMIN 3.7 g/dl (3.3-4.9); ALBUMIN/GLOBULIN RATIO 0.97; ALKALINE PHOSPHATASE 96 IU/L (42-121); ANION GAP 5 (5-13); ASPARTATE AMINO TRANSFERASE 28 IU/L (15-46); BLOOD UREA NITROGEN 8 mg/dl (7-20); CALCIUM 9.3 mg/dl (8.4-10.2); CARBON DIOXIDE 28 mmol/L (21-31); CHLORIDE 105 mmol/L (97-110); CREATININE 0.62 mg/dl (0.44-1.00); Estimated GFR > 60 mL/min (>60); GLUCOSE 91 mg/dl (70-220); LIPASE 91 U/L (23-300); POTASSIUM 3.9 mmol/L (3.5-5.1); SODIUM 138 mmol/L (135-144); TOTAL PROTEIN 7.5 g/dl (6.1-8.1)
[2018-06-25] MEDS: ACETAMINOPHEN 325 MG TAB PO (22:17)
[2018-06-25] MEDS: ZOLPIDEM 5 MG TAB PO (22:48)
[2018-06-26] MEDS: ACETAMINOPHEN 325 MG TAB PO ×2 (07:44→18:32)
[2018-06-27] MEDS: ACETAMINOPHEN 325 MG TAB PO ×2 (03:23→09:35)
[2018-06-27] MEDS: OXYCODONE/ACETAMINOPHEN (5/325) TAB PO (15:45)
== END 2018-06-27 20:10 | disposition home or self-care (01) | DRG 776 ==
LOC: E/R 18:36 → PP2 19:31
DX: O16.5 Unspecified maternal hypertension, complicating the puerperium (principal); F17.200 Nicotine dependence, unspecified, uncomplicated; J45.909 Unspecified asthma, uncomplicated
CPT/HCPCS: 36415; 74176; 76830; 76856; 80053; 81001; 81025; 83690; 85025; 99285-25

== ENCOUNTER 2018-07-11 18:37 | Emergency (ER) | payer MEDICAID ==
[2018-07-12 00:26] LABS: ADD MAN DIFF? NO
[2018-07-12 00:29] LABS: BASOPHILS % 0.3 % (0.0-2.0); EOSINOPHILS # 0.1 10^3/ul (0.0-0.5); HEMATOCRIT 35.1 % (37.0-47.0); HEMOGLOBIN 10.5 g/dl (12.0-16.0); LYMPHOCYTES # 1.3 10^3/ul (0.8-2.9); MEAN CORPUSCULAR HEMOGLOBIN 26.3 pg (29.0-33.0); MEAN CORPUSCULAR HGB CONC 29.9 g/dl (32.0-37.0); MONOCYTE # 0.3 10^3/ul (0.3-0.9); MONOCYTES % 5.4 % (0.0-11.0); NEUTROPHIL # 4.3 10^3/ul (1.6-7.5); PLATELET COUNT 219 10^3/UL (140-415); RED BLOOD COUNT 3.99 10^6/ul (4.20-5.40)
[2018-07-12 00:29] LABS: WHITE BLOOD COUNT 6.1 10^3/ul (4.8-10.8)
[2018-07-12] MEDS: FAMOTIDINE 20 MG INJ IV (00:38)
[2018-07-12] MEDS: ONDANSETRON 4 MG INJ IV (00:38)
[2018-07-12] MEDS: SOD CHLORIDE 0.9% 1,000 ML IV (00:39)
[2018-07-12] MEDS: morphine 2 MG INJ IV (00:39)
[2018-07-12 00:47] LABS: ADD UMIC YES; UR ASCORBIC ACID NEGATIVE (NEGATIVE); UR BACTERIA MODERATE /HPF (NONE SEEN); UR BILIRUBIN (Dip) NEGATIVE (NEGATIVE); UR BLOOD (Dip) 3+ mg/dL (NEGATIVE); UR CLARITY TURBID (CLEAR); UR COLOR AMBER (YELLOW); UR GLUCOSE (Dip) NEGATIVE (NEGATIVE); UR KETONES (Dip) NEGATIVE (NEGATIVE); UR LEUKOCYTE ESTERASE (Dip) 3+ Leu/ul (NEGATIVE); UR MUCUS MANY /HPF (NONE SEEN); UR NITRITE (Dip) NEGATIVE (NEGATIVE); UR RBC 100 /HPF (0-5); UR SPECIFIC GRAVITY (Dip) 1.021 (1.003-1.030); UR SQUAMOUS EPITHELIAL CELL MANY /HPF (FEW); UR TOTAL PROTEIN (Dip) 2+ mg/dl (NEGATIVE); UR UROBILINOGEN (Dip) NEGATIVE (NEGATIVE); UR WBC > 182 /HPF (0-5)
[2018-07-12 00:50] LABS: ALANINE AMINOTRANSFERASE 13 IU/L (13-69); ALBUMIN 3.6 g/dl (3.3-4.9); ALBUMIN/GLOBULIN RATIO 0.81; ALKALINE PHOSPHATASE 114 IU/L (42-121); ANION GAP 6 (5-13); ASPARTATE AMINO TRANSFERASE 22 IU/L (15-46); BLOOD UREA NITROGEN 7 mg/dl (7-20); CALCIUM 9.7 mg/dl (8.4-10.2); CARBON DIOXIDE 29 mmol/L (21-31); CHLORIDE 106 mmol/L (97-110); CREATININE 0.63 mg/dl (0.44-1.00); Estimated GFR > 60 mL/min (>60); GLUCOSE 102 mg/dl (70-220); LIPASE 114 U/L (23-300); POTASSIUM 3.4 mmol/L (3.5-5.1); SODIUM 141 mmol/L (135-144)
[2018-07-12] MEDS: CEFTRIAXONE 1 GM/50 ML (PMX) 50 ML IVPB (01:31)
[2018-07-12] MEDS: KETOROLAC 30 MG INJ IV (02:12)
== END 2018-07-12 02:40 | disposition home or self-care (01) ==
LOC: FTE 07-12 02:40
DX: N39.0 Urinary tract infection, site not specified (principal); J45.909 Unspecified asthma, uncomplicated
CPT/HCPCS: 36415; 74176; 80053; 81001; 81025; 83690; 85025; 96374; 96375; 99285-25